=== PATIENT | female | born 1955 | race Caucasian/White ===

== ENCOUNTER 2020-12-09 10:42 | Emergency (ER) | payer OTHER ==
[2020-12-09 10:55] VITALS: BP 159/76; PULSE 55; TEMP 97.8; BMI 66.7
[2020-12-09] MEDS ORDERED: LIDOCAINE 5% TOPICAL PATCH TP ONE (12:15)
== END 2020-12-09 12:28 | disposition home or self-care (01) ==
LOC: JER 10:42
DX: M79.605 Pain in left leg (principal); M54.16 Radiculopathy, lumbar region
CPT/HCPCS: 99283-25